=== PATIENT | male | born 1945 | race Caucasian/White ===

== ENCOUNTER 2016-10-25 06:12 | Day surgery (SDC) | payer OTHER, BC ==
[2016-10-25] MEDS ORDERED: fentaNYL 250 MCG/5 ML VIAL IVP ONE (08:00)
[2016-10-25] MEDS ORDERED: MIDAZOLAM 2 MG/2 ML VIAL IVP ONE (08:00)
[2016-10-25] MEDS ORDERED: LACTATED RINGERS 1,000 ML IV ONE (08:10)
== END 2016-10-25 06:13 | disposition home or self-care (01) ==
PROC: 0DBK8ZZ Excision of Ascending Colon, Via Natural or Artificial Opening Endoscopic (ICD-10-PCS; principal; 2016-10-25 07:30)
DX: Z12.11 Encounter for screening for malignant neoplasm of colon (principal); D12.2 Benign neoplasm of ascending colon; K64.8 Other hemorrhoids; E78.00 Pure hypercholesterolemia, unspecified
CPT/HCPCS: 45385; J3010; J7120

== ENCOUNTER 2017-06-03 18:36 | Emergency (ER) | payer BC, OTHER ==
--- NOTE | 2017-06-03 19:49 | ED Physician Documentation ---
PD HPI HEENT - Stated complaint Stated Complaint: DIZZY, NAUSEA - Chief complaint Chief Complaint: General - History obtained from History obtained from: Patient - History of Present Illness Timing - onset: How many days ago (several days of mild intermittent symptoms, with worsening today.) Timing - duration: Days Timing - details: Gradual onset Associated symptoms: Trismus (much worse today with head movement, leading to marked vertigo and vomiting.) Similar symptoms before: Has not had sx before Recently seen: Not recently seen Review of Systems Constitutional: denies: Fever Eyes: denies: Loss of vision, Decreased vision Ears: reports: Loss of hearing (baseline hearing deficit and uses hearing aides. ). denies: Ear pain, Tinnitus/ringing Nose: reports: Congestion (last week with sinus congestion that is improved). denies: Rhinorrhea / runny nose Throat: denies: Sore throat Respiratory: denies: Cough GI: reports: Nausea, Vomiting (with dizziness today). denies: Diarrhea Skin: denies: Rash, Lesions Neurologic: denies: Focal weakness, Numbness, Confused, Altered mental status, Headache, Head injury Endocrine: denies: Weight loss, Weight gain Immunocompromised: denies: Immunocompromised PD PAST MEDICAL HISTORY - Past Medical History Past Medical History: Yes Cardiovascular: None Respiratory: None Endocrine/Autoimmune: None GI: None : None HEENT: Chronic vision loss, Chronic hearing loss Psych: None Musculoskeletal: None Derm: None - Past Surgical History General: Colonoscopy Ortho: Arthroscopic surgery - Present Medications Home Medications: Ambulatory Orders Medication Instructions Recorded Confirmed Tamsulosin [Flomax] 0.4 mg ORAL DAILY 10/25/16 06/03/17 Atorvastatin [Lipitor] 10 mg 06/03/17 Dexamethasone [Decadron] 4 mg PO DAILY #5 tablet 06/03/17 Meclizine [Antivert] 25 mg PO Q6H PRN #30 tablet 06/03/17 Ondansetron HCl [Zofran] 4 mg PO Q6H PRN #20 tablet 06/03/17 - Allergies Allergies/Adverse Reactions: Allergies Allergy/AdvReac Type Severity Reaction Status Date / Time No Known Drug Allergies Allergy Verified 10/25/16 07:11 - Social History Does the pt smoke?: No Smoking Status: Never smoker PD ED PE NORMAL - Vitals Vital signs reviewed: Yes - General General: Alert and oriented X 3, Well developed/nourished - HEENT HEENT: PERRL, EOMI (with nystagmus to right on lateral gaze. ), Ears normal, Pharynx benign - Neck Neck: Supple, no meningeal sign, No adenopathy, Thyroid normal, No bruit - Cardiac Cardiac: RRR, No murmur - Respiratory Respiratory: Clear bilaterally - Abdomen Abdomen: Soft, Non tender - Derm Derm: Normal color, Warm and dry - Extremities Extremities: No tenderness to palpate, Normal ROM s pain - Neuro Neuro: Alert and oriented X 3, web operations administrator 2-12 intact, No motor deficit, No sensory deficit, Normal speech, Other (normal arm and leg movement for movements and fine motor coordination, normal cerebellar.) - Psych Psych: Normal mood, Normal affect Results - Vitals Vitals: Vital Signs - 24 hr 06/03/17 06/03/17 18:43 21:11 Temperature 36.1 C L 36.7 C Heart Rate 60 56 L Respiratory 14 18 Rate Blood Pressure 155/75 H 149/84 H O2 Saturation 100 97 Oxygen O2 Source Room air PD MEDICAL DECISION MAKING - ED course Complexity details: re-evaluated patient (some improvement, able to walk and no vomiting now. Still some vertigo. With duration of it, would seem likely labrynthitis or Menieres rather than otolith, so did not try Eply meneuvers. ), considered differential (seems peripheral vertigo with no cerebellar signs, positional vertigo and nystagmus, normal neuro otherwise. ), d/w patient Departure - Departure Disposition: 01 Home, Self Care Clinical Impression: Vertigo Condition: Stable Record reviewed to determine appropriate education?: Yes Instructions: ED Vertigo Unspecified Follow-Up: Parish Abraham ARNP [Primary Care Provider] - Shoaib Carr MD [Provider Admit Priv/Credential] - Prescriptions: Meclizine [Antivert] 25 mg PO Q6H PRN #30 tablet PRN Reason: Dizziness Dexamethasone [Decadron] 4 mg PO DAILY #5 tablet Ondansetron HCl [Zofran] 4 mg PO Q6H PRN #20 tablet PRN Reason: Nausea / Vomiting Comments: Dr. Shoaib Carr [facility] [address] [place] [address] [phone] Meclizine for dizziness. Decadron daily for 5 more days for presumed inflammation of the inner ear. Follow-up with your primary care or ear nose and throat if not improved over the next several days. Discharge Date/Time: 06/03/17 21:10
[2017-06-03] MEDS ORDERED: ONDANSETRON ODT 4 MG TABLET TL STA (20:08)
[2017-06-03] MEDS ORDERED: DEXAMETHASONE 10 MG/ML VIAL PO STA (20:08)
[2017-06-03] MEDS ORDERED: MECLIZINE 12.5 MG TABLET PO STA ×2 (20:08→20:59)
[2017-06-03] MEDS ORDERED: MECLIZINE 12.5 MG TABLET PO ONE ×2 (20:14→21:12)
[2017-06-03] MEDS ORDERED: ONDANSETRON ODT 4 MG TABLET ONE (20:14)
[2017-06-03] MEDS ORDERED: DEXAMETHASONE 10 MG/ML VIAL ONE (20:15)
[2017-06-03] MEDS ORDERED: CHERRY SYRUP 10 ML UDC PO ONE (20:15)
[2017-06-03 21:12] VITALS: BP 149/84
== END 2017-06-03 21:10 | disposition home or self-care (01) ==
LOC: ED 18:36
DX: R42 Dizziness and giddiness (principal); R11.0 Nausea
CPT/HCPCS: 99283; 99284; A9270; Q0162

== ENCOUNTER 2022-04-13 08:44 | Day surgery (SDC) | payer OTHER ==
[2022-04-13] MEDS ORDERED: LACTATED RINGERS 1,000 ML IV ONE ×2 (09:07→10:38)
--- NOTE | 2022-04-13 10:06 | ANESTHESIA ---
Pre-Anesthesia VS, & Labs - Diagnosis hx of polyps - Procedure colonoscopy Vital Signs: Temp Pulse Resp BP Pulse Ox 36.0 C L 54 L 16 149/83 H 96 04/13/22 09:07 04/13/22 09:07 04/13/22 09:07 04/13/22 09:07 04/13/22 09:07 Height: 5 ft 9 in Weight (kg): 75.5 kg Body Mass Index: 24.5 BMI Classification: Healthy weight - NPO >8 hours Last Fluid Intake: am prep - Lab Results Lab results reviewed: Yes Home Medications and Allergies Tamsulosin [Flomax] 0.4 mg ORAL DAILY 10/25/16 Atorvastatin [Lipitor] 10 mg PO DAILY 06/03/17 Allergies/Adverse Reactions: Allergies Allergy/AdvReac Type Severity Reaction Status Date / Time latex AdvReac Rash Verified 04/13/22 09:18 Anes History & Medical History - Anesthetic History Anesthesia Complications: reports: No previous complications Family history of Anesthesia Complications: Denies Family history of Malignant Hyperthermia: Denies - Medical History Cardiovascular: reports: None Pulmonary: reports: None Gastrointestinal: reports: None Urinary: reports: None Musculoskeletal: reports: None Endocrine/Autoimmune: reports: None Skin: reports: None Smoking Status: Never smoker Psychosocial: reports: Alcohol History of Cancer?: No - Surgical History General: reports: Colonoscopy Orthopedic: reports: Arthroscopic surgery Exam General: Alert, Oriented x3, Cooperative Dental: WNL Mouth Openin Fingerbreadth Neck Mobility: Normal Mallampati classification: III Thyromental Distance: 4-6 cm Respiratory: Lungs clear, Normal breath sounds, No respiratory distress Cardiovascular: Regular rate Mental/Cognitive Status: Alert/Oriented X3, Normal for patient Cognitive Status: Within normal limits Plan Anesthesia Type: Total IV Consent for Procedure(s) Verified and Reviewed: Yes Code Status: Attempt Resuscitation ASA classification: 2-Mild systemic disease Is this case an emergency?: No
[2022-04-13] MEDS ORDERED: PROPOFOL 500 MG/50 ML 500 MG/50 ML VIAL ONE (10:13)
[2022-04-13] MEDS ORDERED: LIDOCAINE-MPF 2% 5 ML VIAL ONE (10:13)
[2022-04-13 11:25] VITALS: BP 129/77
--- NOTE | 2022-04-13 11:27 | ANESTHESIA POST OP EVALUATION ---
Anesthesia Post Eval - Post Anesthesia Eval Vitals: Last Vital Signs Temp 36.1 C L 04/13/22 11:00 Pulse 49 L 04/13/22 11:00 Resp 16 04/13/22 11:00 BP 129/77 04/13/22 11:00 Pulse Ox 99 04/13/22 11:00 CV Function Including HR & BP: Stable Pain Control: Satisfactory Nausea & Vomiting: Negative Mental Status: Baseline Respiratory Status: Airway Patent Hydration Status: Satisfactory Anesthesia Complications: None
== END 2022-04-13 08:45 | disposition home or self-care (01) ==
LOC: SDS 08:44
PROVIDERS: ATTEND Surgery
DX: Z12.11 Encounter for screening for malignant neoplasm of colon (principal); K64.8 Other hemorrhoids; K64.4 Residual hemorrhoidal skin tags; Z86.010 Personal history of colon polyps
CPT/HCPCS: 45378; J7120

== ENCOUNTER 2022-05-13 15:14 | Emergency (ER) | payer OTHER ==
[2022-05-13 16:19] LABS: BASOPHILS % (AUTO) 0.6 %; EOSINOPHILS # (AUTO) 0.1 10^3/uL (0.0-0.7); EOSINOPHILS % (AUTO) 1.1 %; HCT - HEMATOCRIT 43.8 % (42.0-52.0); HGB - HEMOGLOBIN 15.4 g/dL (14.0-18.0); LYMPHOCYTES # (AUTO) 2.2 10^3/uL (1.5-3.5); LYMPHOCYTES % (AUTO) 40.6 %; MEAN CORPUSCULAR HEMOGLOBIN 32.7 pg (27.0-31.0); MEAN CORPUSCULAR HGB CONC 35.2 g/dL (32.0-36.0); MEAN PLATELET VOLUME 9.2 fL (7.4-11.4); MONOCYTES # (AUTO) 0.5 10^3/uL (0.0-1.0); MONOCYTES % (AUTO) 8.8 %; NEUTROPHILS # (AUTO) 2.6 10^3/uL (1.5-6.6); NEUTROPHILS % (AUTO) 48.9 %; PLT - PLATELET COUNT 186 10^3/uL (130-450); RED BLOOD COUNT 4.71 10^6/uL (4.70-6.10); RED CELL DISTRIBUTION WIDTH 12.4 % (12.0-15.0); WHITE BLOOD COUNT 5.3 x10^3/uL (4.8-10.8)
[2022-05-13 16:30] LABS: ALBUMIN 4.4 g/dL (3.2-5.5); ALBUMIN/GLOBULIN RATIO 1.9 (1.0-2.2); BILIRUBIN,TOTAL 0.9 mg/dL (0.2-1.0); CALCIUM 9.4 mg/dL (8.5-10.3); CREATININE 1.2 mg/dL (0.6-1.2); POTASSIUM 3.8 mmol/L (3.5-5.0); TOTAL PROTEIN 6.7 g/dL (6.7-8.2)
--- NOTE | 2022-05-13 17:18 | ED Physician Documentation ---
History of Present Illness - Stated complaint Stated Complaint: MALE - Chief complaint Chief Complaint: Abd Pain - Additonal information Additional information: 77-year-old male presents emergency department for evaluation of right inguinal pain. He has had pain in his right inguinal and groin region now for over 3 weeks. He typically only have the pain when he would walk. He did see his primary care doctor for it and no abnormal findings were found. His doctor told him the pain worsened he should come to the ER. Over last 24 hours he is found that the pain is now sometimes present even without walking and it got so sharp and severe at 1 point that he got nauseated. There have been no fevers. No melena or hematochezia. No history of similar. Review of Systems Constitutional: denies: Fever, Chills Eyes: reports: Reviewed and negative Cardiac: reports: Reviewed and negative Respiratory: reports: Reviewed and negative GI: reports: Abdominal Pain (Right inguinal area). denies: Nausea, Vomiting : reports: Reviewed and negative Skin: reports: Reviewed and negative PD PAST MEDICAL HISTORY - Past Medical History Cardiovascular: None Respiratory: None Endocrine/Autoimmune: None GI: None : None HEENT: Chronic vision loss, Chronic hearing loss Psych: None Musculoskeletal: None Derm: None - Past Surgical History General: Colonoscopy Ortho: Arthroscopic surgery - Present Medications Home Medications: Ambulatory Orders Medication Instructions Recorded Confirmed Tamsulosin [Flomax] 0.4 mg ORAL DAILY 10/25/16 04/13/22 Atorvastatin [Lipitor] 10 mg PO DAILY 06/03/17 04/13/22 - Allergies Allergies/Adverse Reactions: Allergies Allergy/AdvReac Type Severity Reaction Status Date / Time latex AdvReac Rash Verified 05/13/22 15:35 - Social History Does the pt smoke?: No Smoking Status: Never smoker PD ED PE NORMAL - General General: Alert and oriented X 3, No acute distress, Well developed/nourished - HEENT HEENT: Atraumatic, Moist mucous membranes - Neck Neck: Supple, no meningeal sign, No adenopathy - Cardiac Cardiac: RRR, No murmur - Respiratory Respiratory: No respiratory distress, Clear bilaterally - Abdomen Abdomen: Normal bowel sounds, Soft. No: Non tender (Mild tenderness in the right inguinal region. No inguinal hernia was appreciated. No swelling was appreciated. No tenderness in the right lower quadrant. Normal exam of the scrotum and testes.) - Back Back: No CVA TTP, No spinal TTP - Derm Derm: Normal color, Warm and dry, No rash - Extremities Extremities: No deformity, No tenderness to palpate, Normal ROM s pain - Neuro Neuro: Alert and oriented X 3, field mechanic 2-12 intact Eye Opening: Spontaneous Motor: Obeys Commands Verbal: Oriented GCS Score: 15 Results - Vitals Vitals: Vital Signs - 24 hr 05/13/22 05/13/22 05/13/22 15:27 16:52 18:50 Temperature 36.5 C 36.4 C L Heart Rate 66 62 50 L Respiratory 14 14 18 Rate Blood Pressure 157/87 H 143/105 H 160/79 H O2 Saturation 100 99 100 Oxygen O2 Source Room air - Labs Labs: Laboratory Tests 05/13/22 05/13/22 16:14 16:14 WBC 5.3 RBC 4.71 Hgb 15.4 Hct 43.8 MCV 93.0 MCH 32.7 H MCHC 35.2 RDW 12.4 Plt Count 186 MPV 9.2 Neut # (Auto) 2.6 Lymph # (Auto) 2.2 [place] # (Auto) 0.5 Eos # (Auto) 0.1 Baso # (Auto) 0.0 Absolute Nucleated RBC 0.00 Nucleated RBC % 0.0 Sodium 136 Potassium 3.8 Chloride 100 L Carbon Dioxide 28 Anion Gap 8.0 BUN 29 H Creatinine 1.2 Estimated GFR (MDRD) 59 L Glucose 107 H Calcium 9.4 Total Bilirubin 0.9 AST 25 ALT 33 Alkaline Phosphatase 47 Total Protein 6.7 Albumin 4.4 Globulin 2.3 Albumin/Globulin Ratio 1.9 Lipase 35 - Rads (name of study) CT of the abdomen Radiology: Final report received (Bilateral inguinal hernias containing small bowel on the right and fat on the left with no evidence of strangulation or incarceration.) PD MEDICAL DECISION MAKING - ED course Complexity details: re-evaluated patient, considered differential, d/w patient ED course: 77-year-old male presents emergency department for evaluation of worsening right lower groin pain for about 3 weeks. Worse only when walking. His physician advised him that if the pain got worse to come to the ER. Screening labs today are essentially unremarkable. The CT however does show that he has bilateral inguinal hernias. The left one containing fat, the right one containing bowel though no signs of strangulation or incarceration. This finding was discussed with patient at the bedside. He will request a referral to surgery from his primary care doctor. Discussed that his presentation for inguinal hernias is Not obvious therefore if he develops uncontrolled pain, has fevers and vomiting or melena he is to return immediately to the ER. Advised avoidance of lifting straining pushing or pulling heavier than 10 pounds until seen by surgery Departure - Departure Disposition: 01 Home, Self Care Clinical Impression: Bilateral inguinal hernia Qualifiers: Obstruction and gangrene presence: without obstruction or gangrene Recurrence: not specified as recurrent Qualified Code(s): K40.20 - Bilateral inguinal hernia, without obstruction or gangrene, not specified as recurrent Condition: Stable Record reviewed to determine appropriate education?: Yes Instructions: ED Hernia Inguinal Comments: Sean you have been having worsening pain in the right lower portion of your groin. Though the hernias are not obvious on physical exam the CT does confirm that you have 2 inguinal hernias. The one on your left side is asymptomatic and contains a small amount of fat only. The hernia on your right side does contain a small amount of bowel. However there are no findings on the CT scan to suggest incarceration or strangulation. Please discuss this ED visit with your primary care doctor. You should receive referral to general surgeon to discuss longer-term and likely operative management of this hernia. Avoid lifting pushing or pulling heavier than 10 pounds until seen by a surgeon. If at any point you develop inguinal pain that does not go away, you develop fevers or have black or bloody stools you do need to return immediately to the ER for a second evaluation.
--- NOTE | 2022-05-13 18:50 | CT Report ---
PROCEDURE: Abdomen/Pelvis WO INDICATIONS: Right groin/inguinal pain. Questionable inguinal TECHNIQUE: After the administration of contrast, 5 mm thick sections acquired from the diaphragms to the sym physis. 5 mm thick coronal and sagittal reformats were acquired. For radiation dose reduction, the following was used: automated exposure control, adjustment of mA and/or kV according to patient size . COMPARISON: None. FINDINGS: Image quality: Excellent. ABDOMEN: Lung bases: Lung bases are clear. Heart size is normal. Solid organs: Liver: The liver has no mass or intrahepatic biliary ductal dilatation. Biliary: The gallbladder contains layering high density consistent with stones. Pancreas: The pancreas has no mass or ductal dilatation. No surrounding inflammation. Spleen: Normal size. No mass. Adrenal glands: No hypertrophy or nodules. Kidneys: No obstructive calculus or hydronephrosis. No solid mass. No cystic mass. Bowel: The distal esophagus and stomach are normal. The small bowel has a normal caliber and appeara nce. The terminal ileum is normal. The large bowel has a normal caliber and appearance. Free air/free fluid: No free air or free fluid. Abdominal wall: No abdominal wall mass or hernia. Retroperitoneum: No retroperitoneal or mesenteric adenopathy by size criteria. Aorta and inferior ve na cava are normal in size. Calcifications. Lymph nodes: No adenopathy. Bones: No suspicious bony lesions. Multilevel degenerative changes. PELVIS: Genitourinary: The prostate is enlarged. Miscellaneous: Bilateral inguinal hernias are seen containing small bowel on the right and fat on th e left. No evidence of incarceration. Bones: No suspicious bony lesions. No vertebral body compression fractures. IMPRESSION: 1. Bilateral inguinal hernias containing small bowel on the right and fat on the left with no evidenc e of strangulation or incarceration. 2. No acute abnormality of the abdomen or pelvis. 3. Cholelithiasis without evidence of cholecystitis. Reviewed by: Wei Evans on 05/13/2022 6:49 PM PDT Approved by: Wei Evans on 05/13/2022 6:49 PM PDT Station ID: [id number]
[2022-05-13 19:25] VITALS: BP 147/86
== END 2022-05-13 19:24 | disposition home or self-care (01) ==
LOC: ED 15:14
DX: K40.20 Bilateral inguinal hernia, without obstruction or gangrene, not specified as recurrent (principal)
CPT/HCPCS: 36415; 80053; 83690; 85025; 99284

== ENCOUNTER 2024-06-08 09:49 | Emergency (ER) | payer OTHER ==
[2024-06-08 10:33] VITALS: O2SAT 97
[2024-06-08 10:42] LABS: BASOPHILS % (AUTO) 0.2 %; EOSINOPHILS % (AUTO) 0.4 %; HCT - HEMATOCRIT 44.9 % (42.0-52.0); HGB - HEMOGLOBIN 15.3 g/dL (14.0-18.0); LYMPHOCYTES # (AUTO) 1.4 10^3/uL (1.5-3.5); LYMPHOCYTES % (AUTO) 30.9 %; MEAN CORPUSCULAR HEMOGLOBIN 32.1 pg (27.0-31.0); MEAN CORPUSCULAR HGB CONC 34.1 g/dL (32.0-36.0); MEAN CORPUSCULAR VOLUME 94.1 fL (80.0-94.0); MEAN PLATELET VOLUME 9.5 fL (7.4-11.4); MONOCYTES # (AUTO) 0.4 10^3/uL (0.0-1.0); MONOCYTES % (AUTO) 9.1 %; NEUTROPHILS # (AUTO) 2.7 10^3/uL (1.5-6.6); PLT - PLATELET COUNT 187 10^3/uL (130-450); RED BLOOD COUNT 4.77 10^6/uL (4.70-6.10); RED CELL DISTRIBUTION WIDTH 12.6 % (12.0-15.0); WHITE BLOOD COUNT 4.5 x10^3/uL (4.8-10.8)
[2024-06-08 10:55] LABS: ALBUMIN 4.3 g/dL (3.2-5.5); ALBUMIN/GLOBULIN RATIO 1.9 (1.0-2.2); BILIRUBIN,TOTAL 0.8 mg/dL (0.2-1.0); CALCIUM 9.5 mg/dL (8.5-10.3); POTASSIUM 4.3 mmol/L (3.5-4.5); TOTAL PROTEIN 6.6 g/dL (6.4-8.9)
[2024-06-08] MEDS: CYCLOBENZAPRINE 10 MG TABLET PO STA (12:02)
[2024-06-08] MEDS: ACETAMINOPHEN 500 MG TABLET PO STA (12:02)
--- NOTE | 2024-06-08 12:02 | ED Physician Documentation ---
History of Present Illness - Stated complaint Stated Complaint: LT LOWER BACK PX - Chief complaint Chief Complaint: Abd Pain - Additonal information Additional information: 79-year-old male with history of right sided sciatica presents emergency department for left lower back pain. Patient does have history of laminectomy and other back surgeries that he cannot remember the name of. He says that normally his back pain flares are treated well with Tylenol ibuprofen and some stretching but he has been unable to get comfortable with this left lower back pain. No nausea vomiting no fevers or chills no difficulty with urination or bowel movements. No urinary or bowel incontinence. He called the OR clinic and they informed him to come to the emergency department for further evaluation.Patient does say over the last month he has been doing a lot of ladder work especially within the last couple weeks and does state that he has been doing a lot of heavy strenuous labor. This started about 5 days ago but it was not after any specific incident that he can recall. PD PAST MEDICAL HISTORY - Past Medical History Cardiovascular: None Respiratory: None Endocrine/Autoimmune: None GI: None : None HEENT: Chronic vision loss, Chronic hearing loss Psych: None Musculoskeletal: None Derm: None - Past Surgical History General: Colonoscopy Ortho: Arthroscopic surgery - Present Medications Home Medications: Ambulatory Orders Medication Instructions Recorded Confirmed Tamsulosin [Flomax] 0.4 mg ORAL DAILY 10/25/16 04/13/22 Atorvastatin [Lipitor] 10 mg PO DAILY 06/03/17 04/13/22 Cyclobenzaprine [Flexeril] 10 mg PO TID PRN 6 Days #20 tablet 06/08/24 - Allergies Allergies/Adverse Reactions: Allergies Allergy/AdvReac Type Severity Reaction Status Date / Time latex AdvReac Rash Verified 05/13/22 15:35 - Social History Does the pt smoke?: No Smoking Status: Never smoker PD ED PE NORMAL - Vitals Vital signs reviewed: Yes - General General: Alert and oriented X 3, No acute distress, Well developed/nourished - Back Back: No CVA TTP - Derm Derm: Normal color, Warm and dry, No rash - Extremities Extremities: No edema - Free text exam Free text exam: Neck and back are without deformity, external skin changes, or signs of trauma. Curvature of the cervical, thoracic, and lumbar spine are within normal limits. Bony features of the shoulders and hips are of equal height bilaterally. Posture is upright, gait is smooth, steady, and within normal limits. No tenderness noted on palpation of the spinous processes. Spinous processes are midline. Cervical, thoracic, and lumbar paraspinal muscles are not tender and are without spasm. No discomfort is noted with flexion, extension, and [id number] rotation of the cervical spine, full range of motion is noted. Full range of motion including flexion, extension, and [id number] rotation of the thoracic and lumbar spine are noted and without discomfort. Straight leg raise test is negative bilaterally. Sensation to the upper and lower extremities is normal bilaterally. No clonus is noted. Pallet Stone Positioner strength is normal bilaterally. Dorsi/plantar flexion is normal bilaterally. Results - Vitals Vitals: Vital Signs - 24 hr 06/08/24 06/08/24 10:19 13:00 Temperature 36.3 C L Heart Rate 61 47 L Respiratory 16 16 Rate Blood Pressure 140/69 H 150/70 H O2 Saturation 97 97 Oxygen O2 Source Room air - Labs Labs: Laboratory Tests 06/08/24 06/08/24 06/08/24 10:30 10:36 10:36 WBC 4.5 L RBC 4.77 Hgb 15.3 Hct 44.9 MCV 94.1 H MCH 32.1 H MCHC 34.1 RDW 12.6 Plt Count 187 MPV 9.5 Neut # (Auto) 2.7 Lymph # (Auto) 1.4 L Love # (Auto) 0.4 Eos # (Auto) 0.0 Baso # (Auto) 0.0 Absolute Nucleated RBC 0.00 Nucleated RBC % 0.0 Sodium 138 Potassium 4.3 Chloride 105 Carbon Dioxide 28 Anion Gap 5.0 L BUN 23 H Creatinine 1.0 Estimated GFR (MDRD) 72 L Glucose 101 Calcium 9.5 Total Bilirubin 0.8 AST 19 ALT 21 Alkaline Phosphatase 56 Total Protein 6.6 Albumin 4.3 Globulin 2.3 Albumin/Globulin Ratio 1.9 Lipase 20 Urine Color YELLOW Urine Clarity CLEAR Urine pH 6.0 Ur Specific [place] <=1.005 Urine Protein NEGATIVE Urine Glucose (UA) NEGATIVE Urine Ketones NEGATIVE Urine Occult Blood NEGATIVE Urine Nitrite NEGATIVE Urine Bilirubin NEGATIVE Urine Urobilinogen 0.2 (NORMAL) Ur Leukocyte Esterase NEGATIVE Ur Microscopic Review NOT INDICATED Urine Culture Comments NOT INDICATED - Rads (name of study) CT KUB Relevant Findings:: Final report received, EMP independent interpretation of test, Other (punctate left nonobstructing stone) PD Medical Decision Making - ED course ED course: 79-year-old male presents emerged part for left flank pain. CT KUB was complete for the evaluation of possible renal calculi it does show a nonobstructing calcified stone although I do not believe that this is the cause of the patient's left flank pain. He has no CVA tenderness making me less concern for possible pyelonephritis his urinalysis is unremarkable and his kidney function also appears to be unremarkable. No electrolyte abnormalities no anemia or leukocytosis. Vital signs are stable. I do believe that most likely this is related to musculoskeletal strain. When I push on the area of pain that the patient complains on he says that this actually somewhat alleviates the pain and feels well. He was given a muscle relaxer here in the emergency department did have significant improvement of symptoms a prescription of muscle relaxer was sent to patient's preferred pharmacy and he was told to follow-up with primary care provider for possible physical therapy referral. Return precautions given all questions answered patient safe for discharge at this time. Departure - Departure Disposition: 01 Home, Self Care Clinical Impression: Injury of muscle of lower back Instructions: ED Back Care Tips Prescriptions: Cyclobenzaprine [Flexeril] 10 mg PO TID PRN 6 Days #20 tablet PRN Reason: Spasms Comments: Thank for trusting us with your care. We have completed the CT scan of your back and we are not seeing any acute abnormalities or findings no kidney stones either. We have also completed some basic labs and you do not have an acute kidney injury there is no blood in your urine no acute other abnormalities that would require further emergent workup. Please follow-up with your primary care provider for physical therapy referral and you can take 1000 mg of Tylenol every 8 hours and 600-800 mg of ibuprofen every 6 hours but make sure that you do not take this for longer than 12 to 14 days as this can be really hard on your stomach and kidneys. I have also sent a prescription of muscle relaxers to [facility] in [place] you can take this up to 3 times a day as needed. Take next couple days and just rest apply ice 20 minutes at a time 1 hour off to your back and see if this helps. Please come back in if you are starting to develop any worsening symptoms, fevers or chills, difficulty urinating, incontinence of bowel or bladder. Forms: PCP List Discharge Date/Time: 06/08/24 13:37
[2024-06-08 12:13] LABS: BILIRUBIN,URINE NEGATIVE (NEGATIVE); GLUCOSE, URINE (UA) NEGATIVE (NEGATIVE); KETONES,URINE (UA) NEGATIVE (NEGATIVE); LEUKOCYTE ESTERASE, URINE NEGATIVE (NEGATIVE); NITRITE,URINE NEGATIVE (NEGATIVE); OCCULT BLOOD,URINE NEGATIVE (NEGATIVE); PROTEIN,URINE NEGATIVE (NEGATIVE); UROBILINOGEN,URINE 0.2 (NORMAL) E.U./dL (NORMAL)
[2024-06-08 12:15] LABS: CLARITY,URINE CLEAR (CLEAR)
[2024-06-08 13:05] VITALS: BP 150/70
--- NOTE | 2024-06-08 13:18 | CT Report ---
PROCEDURE: KUB INDICATIONS: left flank pain TECHNIQUE: A CT scan of the abdomen and pelvis was performed without the use of intravenous contrast. Images we re recorded and evaluated at appropriate window settings. Reformats: coronal and sagittal. For radiat ion dose reduction, the following was used: automated exposure control, adjustment of mA and/or kV ac cording to patient size. COMPARISON: 05/05/2022 images not available for viewing FINDINGS: Image quality: Diagnostic Lower chest: Basal scarring and atelectasis. Heart size is at the upper lateral normal. Coronary and annular calcifications Liver: No contour deforming mass. Solid organs are not well assessed without IV contrast Gallbladder and biliary system: Cholelithiasis. Nondilated biliary system Pancreas: No ductal dilation Spleen: Nonenlarged Adrenals: No discrete nodules Kidneys: A punctate left nonobstructing stone is seen. No obstructing calcified stone identified. No hydronephrosis. No contour deforming mass. Vessels and lymph nodes: No abdominal aortic aneurysm. No pathologic lymph nodes by size criteria. Bowel and peritoneum: No evidence of small bowel obstruction. No pathologic ascites or drainable absc ess. Body wall: Small fat-containing inguinal hernias Pelvis: Bladder is unremarkable. Heterogeneous enlarged prostate is seen. Bones: No acute or suspicious osseous finding. Sacroiliac ankylosis and lumbosacral degenerative salter ges are present. IMPRESSION: No obstructing calcified stone. Punctate left nonobstructing calculus is identified. Enlarged heterogeneous prostate, not well evaluated on this study Other findings as above on this limited noncontrast imaging. Reviewed by: Diego Waterman MD on 06/08/2024 1:17 PM PDT Approved by: Diego Waterman MD on 06/08/2024 1:17 PM PDT Station ID: [id number]
== END 2024-06-08 13:37 | disposition home or self-care (01) ==
LOC: ED 09:49
DX: S39.092A Other injury of muscle, fascia and tendon of lower back, initial encounter (principal); X50.9XXA Other and unspecified overexertion or strenuous movements or postures, initial encounter
CPT/HCPCS: 36415; 74176; 80053; 81003; 83690; 85025; 99284; A9270; 81001; 87086

== ENCOUNTER 2024-06-28 14:40 | Emergency (ER) | payer OTHER ==
[2024-06-28 15:03] VITALS: BP 152/90; O2SAT 100
[2024-06-28 15:12] LABS: BASOPHILS % (AUTO) 0.3 %; EOSINOPHILS # (AUTO) 0.1 10^3/uL (0.0-0.7); HCT - HEMATOCRIT 48.1 % (42.0-52.0); HGB - HEMOGLOBIN 16.3 g/dL (14.0-18.0); LYMPHOCYTES # (AUTO) 2.3 10^3/uL (1.5-3.5); LYMPHOCYTES % (AUTO) 28.9 %; MEAN CORPUSCULAR HEMOGLOBIN 31.7 pg (27.0-31.0); MEAN CORPUSCULAR HGB CONC 33.9 g/dL (32.0-36.0); MEAN CORPUSCULAR VOLUME 93.4 fL (80.0-94.0); MEAN PLATELET VOLUME 9.8 fL (7.4-11.4); MONOCYTES # (AUTO) 0.5 10^3/uL (0.0-1.0); MONOCYTES % (AUTO) 6.7 %; NEUTROPHILS % (AUTO) 62.7 %; PLT - PLATELET COUNT 180 10^3/uL (130-450); RED BLOOD COUNT 5.15 10^6/uL (4.70-6.10); RED CELL DISTRIBUTION WIDTH 12.4 % (12.0-15.0); WHITE BLOOD COUNT 7.9 x10^3/uL (4.8-10.8)
[2024-06-28 15:17] LABS: BILIRUBIN,URINE NEGATIVE (NEGATIVE); GLUCOSE, URINE (UA) NEGATIVE (NEGATIVE); KETONES,URINE (UA) NEGATIVE (NEGATIVE); LEUKOCYTE ESTERASE, URINE NEGATIVE (NEGATIVE); NITRITE,URINE NEGATIVE (NEGATIVE); OCCULT BLOOD,URINE NEGATIVE (NEGATIVE); PROTEIN,URINE NEGATIVE (NEGATIVE); UROBILINOGEN,URINE 0.2 (NORMAL) E.U./dL (NORMAL)
[2024-06-28 15:19] LABS: CLARITY,URINE CLEAR (CLEAR)
[2024-06-28 15:28] LABS: ALBUMIN 4.4 g/dL (3.2-5.5); ALBUMIN/GLOBULIN RATIO 1.8 (1.0-2.2); BILIRUBIN,TOTAL 0.6 mg/dL (0.2-1.0); CALCIUM 9.9 mg/dL (8.5-10.3); POTASSIUM 3.9 mmol/L (3.5-4.5); TOTAL PROTEIN 6.8 g/dL (6.4-8.9)
--- NOTE | 2024-06-28 16:28 | ED Physician Documentation ---
History of Present Illness - Stated complaint Stated Complaint: LOWER BACK PX - Chief complaint Chief Complaint: Abd Pain - History obtained from History obtained from: Patient - Additonal information Additional information: He has a history of back issues and has had lumbar surgery in the past. About 3 weeks ago developed left lower back pain worse with bending and twisting. He was seen here by my partner and he had a CT showing a punctate left nephrolith. He was told that there was no kidney stone, but of course I think what was meant was there was no kidney stone that was actively bothering him. He called the [facility] for follow-up and they told him her to return to the emergency department because he did have a kidney stone. Pain is still present. It improved after course of steroids. It is worse at night. He was prescribed Flexeril which is not helpful. He denies urinary complaints, fever, injury, saddle anesthesia, incontinence. PD PAST MEDICAL HISTORY - Past Medical History Past Medical History: Yes Cardiovascular: None Respiratory: None Endocrine/Autoimmune: None GI: None : None HEENT: Chronic vision loss, Chronic hearing loss Psych: None Musculoskeletal: None Derm: None - Past Surgical History Past Surgical History: Yes General: Colonoscopy Ortho: Arthroscopic surgery - Present Medications Home Medications: Ambulatory Orders Medication Instructions Recorded Confirmed Tamsulosin [Flomax] 0.4 mg ORAL DAILY 10/25/16 04/13/22 Atorvastatin [Lipitor] 10 mg PO DAILY 06/03/17 04/13/22 Cyclobenzaprine [Flexeril] 10 mg PO TID PRN 6 Days #20 tablet 06/08/24 Tizanidine HCl 1 - 2 tab PO TID PRN #60 tablet 06/28/24 - Allergies Allergies/Adverse Reactions: Allergies Allergy/AdvReac Type Severity Reaction Status Date / Time latex AdvReac Rash Verified 06/28/24 14:50 - Social History Does the pt smoke?: No Smoking Status: Never smoker Does the pt drink ETOH?: No Does the pt have substance abuse?: No - Immunizations Immunizations are current?: Yes PD ED PE NORMAL - Vitals Vital signs reviewed: Yes - General General: Alert and oriented X 3, No acute distress - Abdomen Abdomen: Normal bowel sounds, Soft, Non tender - Back Back: Other (Some muscular tenderness of the left low back, no flank tenderness. He has an old well-healed surgical scar over the lumbar spine.) - Derm Derm: Normal color, Warm and dry - Extremities Extremities: Other (The patient has equal and normal Achilles and patellar reflexes bilaterally. Normal sensation in all areas of the legs. Patient denies saddle anesthesia. Normal strength in flexion-extension at the ankles, knees, and flexion of the hips.) - Neuro Neuro: Alert and oriented X 3, Normal speech Results - Vitals Vitals: Vital Signs - 24 hr 06/28/24 14:50 Temperature 36.8 C Heart Rate 93 Respiratory 16 Rate Blood Pressure 152/90 H O2 Saturation 100 Oxygen O2 Source Room air - Labs Labs: Laboratory Tests 06/28/24 06/28/24 06/28/24 15:02 15:08 15:08 WBC 7.9 RBC 5.15 Hgb 16.3 Hct 48.1 MCV 93.4 MCH 31.7 H MCHC 33.9 RDW 12.4 Plt Count 180 MPV 9.8 Neut # (Auto) 5.0 Lymph # (Auto) 2.3 Hemphill # (Auto) 0.5 Eos # (Auto) 0.1 Baso # (Auto) 0.0 Absolute Nucleated RBC 0.00 Nucleated RBC % 0.0 Sodium 139 Potassium 3.9 Chloride 102 Carbon Dioxide 31 Anion Gap 6.0 BUN 19 Creatinine 1.0 Estimated GFR (MDRD) 72 L Glucose 112 H Calcium 9.9 Total Bilirubin 0.6 AST 17 ALT 20 Alkaline Phosphatase 53 Total Protein 6.8 Albumin 4.4 Globulin 2.4 Albumin/Globulin Ratio 1.8 Lipase 14 Urine Color YELLOW Urine Clarity CLEAR Urine pH 6.0 Ur Specific Edgar 1.015 Urine Protein NEGATIVE Urine Glucose (UA) NEGATIVE Urine Ketones NEGATIVE Urine Occult Blood NEGATIVE Urine Nitrite NEGATIVE Urine Bilirubin NEGATIVE Urine Urobilinogen 0.2 (NORMAL) Ur Leukocyte Esterase NEGATIVE Ur Microscopic Review NOT INDICATED Urine Culture Comments NOT INDICATED PD Medical Decision Making - ED course ED course: I discussed with him and his the prior imaging showing a tiny punctate left nephrolith, given its location it is not obstructing and should not be causing any significant pain. His pain is muscular. Basic screening labs ordered from triage included CBC, CMP, and urinalysis which were normal/negative. Departure - Departure Disposition: 01 Home, Self Care Clinical Impression: Injury of muscle of lower back Condition: Good Record reviewed to determine appropriate education?: Yes Instructions: ED Sprain Strain Lumbar Prescriptions: Tizanidine HCl 1 - 2 tab PO TID PRN #60 tablet PRN Reason: Spasms Comments: As discussed, although you do have a left-sided kidney stone, it is tiny and still in the kidney so should not cause you any pain. Suspect your pain is muscular and I sent a prescription for a different muscle relaxer to the [facility] pharmacy at the [address] of [address] [id number] [facility] here in [place]. Reasonable to continue discussion with your primary care physician regarding physical therapy. Return for new or worsening symptoms. Forms: PCP List
== END 2024-06-28 16:41 | disposition home or self-care (01) ==
LOC: ED 14:40
DX: S39.002A Unspecified injury of muscle, fascia and tendon of lower back, initial encounter (principal); X58.XXXA Exposure to other specified factors, initial encounter; N20.0 Calculus of kidney; Z98.890 Other specified postprocedural states
CPT/HCPCS: 36415; 80053; 81001; 81003; 83690; 85025; 87086; 99283; 99284